=== PATIENT | male | born 2000 | race Caucasian/White ===

== ENCOUNTER → 2019-08-12 | Outpatient (CLI) | payer BC | LOC: COL.RAD 15:48 | DX: S06.0X9A Concussion with loss of consciousness of unspecified duration, initial encounter (principal) ==

== ENCOUNTER 2019-09-18 14:21 | Emergency (ER) | payer BC ==
[~2019-09-18] VITALS: Ht 180.3 cm; Wt 63.6 kg
[2019-09-18 14:41] VITALS: BP 111/70; TEMP 98.7
[2019-09-18 17:16] LABS: MONOSCREEN NEGATIVE
[2019-09-18] MEDS ORDERED: AMOXICILLIN 8751 TAB PO (17:18)
[2019-09-18 17:20] VITALS: PULSE 78
== END 2019-09-18 17:26 | disposition home or self-care (01) ==
LOC: COL.ER 14:21
PROVIDERS: Nurse Practitioner
DX: J32.9 Chronic sinusitis, unspecified (principal); S06.0X9A Concussion with loss of consciousness of unspecified duration, initial encounter

== ENCOUNTER 2023-09-14 17:19 | Emergency (ER) | payer OTHER ==
[~2023-09-14] VITALS: Ht 180.3 cm; Wt 72.7 kg
[~2023-09-14 17:19] MED LIST: AMOXICILLIN 8751 TAB PO
[2023-09-14 18:00] VITALS: TEMP 98.6
[2023-09-14 18:16] LABS: BASO % 0.4 % (0.0-2.0); EOS % 0.1 % (0.0-4.0); GRAN # 9.4 K/mm3 (1.4-6.5); GRAN % 87.2 % (42.2-75.2); HEMATOCRIT 48.2 % (42.0-52.0); HEMOGLOBIN 16.9 g/dl (13.5-18.0); LYMPH # 0.4 K/mm3 (1.2-3.4); LYMPH % 3.9 % (20.0-51.0); MEAN CELL VOLUME 91 fl (80.0-100.0); MEAN CORPUSCULAR HEMOGLOBIN 32 pg (27-31); MEAN CORPUSCULAR HGB CONC 35 g/dl (33.0-37.0); MEAN PLATELET VOLUME 10.4 fl (7.4-10.4); MONO # 0.9 K/mm3 (0.1-0.6); MONO % 8.1 % (1.7-9.3); PLATELET COUNT 190 K/mm3 (130-400); RED BLOOD COUNT 5.31 M/mm3 (4.20-5.60); REDCELL DISTRIBUTION WIDTH-CV 11.6 % (11.5-14.5)
[2023-09-14 18:41] LABS: ALBUMIN 4.5 gm/dL (3.5-5.0); BILIRUBIN,TOTAL 2.6 mg/dL (0.2-1.2); C-REACTIVE PROTEIN 0.72 mg/dL (0.00-0.50); CALCIUM 9.4 mg/dL (8.4-10.2); CREATININE, serum 0.91 mg/dL (0.72-1.25); POTASSIUM 4.3 mmol/L (3.5-4.5); TOTAL PROTEIN 7.7 gm/dL (6.2-8.1)
[2023-09-14 19:22] VITALS: BP 113/75; PULSE 82
== END 2023-09-14 19:30 | disposition home or self-care (01) ==
LOC: COL.ER 17:19
PROVIDERS: Family Medicine
DX: R55 Syncope and collapse (principal)
CPT/HCPCS: J7120